=== PATIENT | female | born 1970 | race Caucasian/White ===

== ENCOUNTER 2018-01-09 06:02 | Day surgery (SDC) | payer MEDICAID ==
[~2018-01-09 06:02] MED LIST: ACETAMINOPHEN 1,000 MG/100 ML BTL IV ONE; CEFAZOLIN 2 Gram 2 GM/50 ML BAG IVPB ONE; FAMOTIDINE 20MG TABLET PO ONE; MECLIZINE 25 MG TABLET PO ONE; METOCLOPRAMIDE 10 MG TABLET PO ONE
[2018-01-09] MEDS ORDERED: BUPIVACAINE 0.25% PF (2.5MG/ML) 10ML VIAL IVP ONE (06:03)
[2018-01-09] MEDS ORDERED: FENTANYL PF 100MCG/2ML VIAL IV ONE (06:03)
[2018-01-09] MEDS ORDERED: HYDROMORPHONE HCL 2 MG/ML VIAL IV ONE (06:03)
[2018-01-09] MEDS ORDERED: ONDANSETRON HCL IV 4 MG/2 ML VIAL IVP ONE (06:03)
[2018-01-09] MEDS ORDERED: PROPOFOL 10 MG/ML VIAL IV ONE (06:03)
[2018-01-09] MEDS ORDERED: DEXAMETHASONE 4 MG/ML 1ML VIAL IVP ONE (06:03)
[2018-01-09] MEDS ORDERED: SEVOFLURANE 250 ML INH ONE (06:03)
[2018-01-09] MEDS ORDERED: LIDOCAINE 2% MDV (20MG/ML) 20ML VIAL IV ONE (06:03)
[2018-01-09] MEDS ORDERED: BUPIVACAINE LIPOSOME 266MG/20ML VIAL IV ONE (06:03)
[2018-01-09] MEDS ORDERED: MIDAZOLAM HCL 2MG/2ML VIAL IV ONE (06:03)
[2018-01-09 06:28] LABS: HEMATOCRIT 42.1 % (35.0-47.0); HEMOGLOBIN 13.8 gm/dl (11.6-16.0)
[2018-01-09] MEDS ORDERED: ONDANSETRON HCL IV 4 MG/2 ML VIAL IVP PRN (12:38)
[2018-01-09] MEDS ORDERED: PATIENT OWN MED: PROAIR HFA INH PRN (12:54)
[2018-01-09] MEDS ORDERED: HYDROMORPHONE HCL 2 MG/ML VIAL IVP PRN ×2 (13:03)
[2018-01-09] MEDS: RINGERS SOLUTION,LACTATED 1,000 ML IV SCH ×2 (13:05→23:38)
--- NOTE | 2018-01-09 14:14 | Operative Note ---
DATE OF OPERATION: 01/09/18 PREOPERATIVE DIAGNOSES: 1. RIGHT BREAST CARCINOMA. 2. BILATERAL GIGANTOMASTIA. POSTOPERATIVE DIAGNOSES: 1. RIGHT BREAST CARCINOMA. 2. BILATERAL GIGANTOMASTIA. PROCEDURE: BILATERAL INFERIOR PEDICLE GEIGER PATTERN BREAST REDUCTION. SURGEON: TRUE WHITE M.D. ANESTHETIC: GENERAL. ESTIMATED BLOOD LOSS: 100 ML. DRAINS: NONE. SPECIMENS: 2200 GRAMS FROM THE RIGHT BREAST. 1900 GRAMS FROM THE LEFT BREAST. INDICATIONS: This patient is a very nice young lady whose biopsy proves carcinoma of the right breast. She was evaluated preoperatively by Radiation Oncology and they suggested that she have a breast reduction prior to adjunct radiation therapy to make it for effective because her breasts were so big. PROCEDURE: The patient was interviewed preoperatively and operative plan was reviewed. She was marked in the sitting position. Again, reviewed the fact that she will probably be smaller than she likes but the goal here is to help with her adjunct therapy. She was then taken to the Operating Room with a PAS stockings after induction of uncomplicated general anesthesia. All pressure points were well-padded and protected and prepped and draped in the usual sterile manner. I circumscribed her nipple-areolar complex on the left side first, the non-cancer side to de-epithelize 8 cm base pedicles. We then excised medially down to but not through pect fascia and laterally into the axilla. We then raised skin flaps, which were symmetrical central in the mastectomy plane because of her diagnosis. This would be thinner than usual. We then took the remaining bulk off the pedicle. Nipple showed no signs of congestion or ischemia. We irrigated to make sure we had good hemostasis and closed temporarily by passing medial to lateral, lateral to medial taking up the excess in the midline. We then closed using interrupted and subcuticular INSORB dissolvable clyde every half centimeter and running 3-0 Monocryl. We then turned our attention to the right breast, which was the cancer-containing breast to perform the exact same operation. It should be noted also that we did find a previous biopsy seroma cavity that did have some nodules in it, nodularity. We did excise this and sent this for permanent section also. We then sat her up 90 degrees to make sure we had good shape, contour, and symmetry. We will rocky the new nipple with complex positions. We then secured each nipple-areolar complex using interrupted and subcuticular 4-0 Monocryl. It should been noted that we did not cross-contaminate from right to left. We did use a separate procedure so there was no cancer side going to the non-cancer side although she is technically free of cancer. Upon placement of the dressings, both nipples were well vascularized and showed no signs of vascular venous insufficiency or ischemia. Stable dressings were applied. She tolerated the procedure well without complications. JOB NUMBER: [id number] [facility]
[2018-01-09] MEDS: HYDROCODONE/APAP 5/325MG TABLET PO PRN ×3 (14:45→23:43)
[2018-01-09] MEDS: CEFAZOLIN 1 Gram 1 GM/50 ML BAG IVPB SCH (16:12)
[2018-01-09] MEDS: LABETALOL 100 MG PO SCH (21:53)
[2018-01-09] MEDS ORDERED: DIPHENHYDRAMINE 50 MG PO SCH (22:00)
[2018-01-09] MEDS ORDERED: [UNRECOGNIZED DRUG - OTHER] PO SCH (22:00)
[2018-01-09] MEDS ORDERED: PATIENT OWN MED: ATORVASTATIN 10 MG PO SCH (22:00)
[2018-01-09] MEDS ORDERED: LOSARTAN PO SCH (22:00)
[2018-01-09] MEDS ORDERED: IRON 25 MG PO SCH (22:00)
[2018-01-09] MEDS ORDERED: CHOLECALCIFEROL PO SCH (22:00)
[2018-01-09] MEDS ORDERED: VENLAFAXINE 150 MG PO SCH (22:00)
[2018-01-09] MEDS ORDERED: HCTZ PO SCH (22:00)
[2018-01-09] MEDS ORDERED: CALCIUM PO SCH (22:00)
[2018-01-10] MEDS: HYDROCODONE/APAP 5/325MG TABLET PO PRN ×2 (05:51→10:11)
[2018-01-10] MEDS: CEFAZOLIN 1 Gram 1 GM/50 ML BAG IVPB SCH ×2 (09:29)
[2018-01-10] MEDS: LABETALOL 100 MG PO SCH (09:33)
== END 2018-01-10 10:20 | disposition home or self-care (01) ==
LOC: SUR 06:02 → MEDSURG 12:14 → SUR 01-10 10:20
PROVIDERS: ATTEND Plastic Surgery
DX: C50.911 Malignant neoplasm of unspecified site of right female breast (principal); N62 Hypertrophy of breast
CPT/HCPCS: 19318; 00402; 64450; 85018; 85014; 81025; J2405; J3010; J0690 ×3; J1170; C9290; 76942; J7120